=== PATIENT | female | born 1965 | race Caucasian/White ===

== ENCOUNTER 2024-10-18 07:53 | Outpatient (AMB) | payer OTHER, SELFPAY ==
--- NOTE | 2024-10-18 08:05 | MHC.OFFVIS ---
Vital Signs 10/18/24 08:08 Height 5 ft 2 in Weight 155 lb BMI 28.3 Intake Visit Reasons: Left shoulder pain and weakness Intake Note: Marley is a 59 year old right hand dominant female who presents with complaints of progressively worsening left shoulder pain and weakness. The patient describes her pain as sharp in nature. The patient states that she injured her left shoulder approximately 6 months ago when she fell while walking her dog. She states that her dog chased after another dog and she fell onto her left shoulder. She has been doing physical therapy with a personal lines account manager which has aggravated her pain. She has failed the last 6 weeks of conservative treatment which has included physical therapy, Tylenol, anti-inflammatory medicines and topical creams. The patient reports difficulty when lifting her left hand above shoulder height. She denies any other injuries. 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 Physical Exam Vital Signs: BMI result Body Mass Index 28.3 Const Other: Well-nourished well-developed very friendly female awake alert and oriented x3 in no acute distress Extrem Other: Bilateral upper extremity examination shows good capillary refill, no skin lesions noted, normal sensation light touch Left shoulder examination shows decreased range of motion when compared to her right shoulder, 4+ out of 5 strength with supraspinatus testing, positive impingement signs, no instability Results Reviewed Results Reviewed: X-rays of the patient's left shoulder taken today show severe acromioclavicular joint narrowing, a type 2 acromion, no acute bony abnormalities Assessment & Plan Assessment & Plan (1) Rotator cuff insufficiency of left shoulder: Code(s): M25.312 - Other instability, left shoulder Category: Medical Plan Ms. Delong presents with progressively worsening left shoulder pain and weakness possibly due to a full-thickness rotator cuff tear. Thus, I will send the patient for an MRI of her left shoulder for further evaluation. I will see her back once the MRI is completed to discuss the findings and treatment options. She will continue with her activity modifications in the meantime. Feel free to call me at any time should questions regarding her orthopedic management arise. Thank you very much for asking me to see this very friendly patient. I spent 22 minutes in reviewing the patient's records and imaging studies, seeing the patient and documenting in the medical record. Orders: Orders MR shoulder LT wo con Today M25.312 - Other instability, left shoulder Coding Level of Care Code New Pt Level 3 (05709) Complex EM visit Add On G2211 Diagnoses Rotator cuff insufficiency of left shoulder M25.312
[2024-10-18 08:08] VITALS: BMI 28.3
== END 2024-10-18 08:21 | disposition home or self-care (01) ==
PROVIDERS: Visit Provider Orthopaedic Surgery
DX: M25.312 Other instability, left shoulder (principal)
CPT/HCPCS: 99203

== ENCOUNTER 2024-10-18 09:35 | Outpatient (REF) | payer OTHER, SELFPAY ==
--- NOTE | ~2024-10-18 | XR_ITS ---
EXAMINATION: XR SHOULDER, LEFT CLINICAL INFORMATION: M25.511 - Pain in left shoulder COMPARISON: None available. TECHNIQUE: Two views of the left shoulder. FINDINGS: No acute cortical disruption or malalignment. No lytic or blastic lesions. XR/XR shoulder LT min 2V IMPRESSION: No acute fracture or dislocation. Electronically signed by: John Silver MD 10/20/2024 01:01 PM EST
== END 2024-10-18 09:36 | disposition home or self-care (01) ==
LOC: HO.HOSX 09:35
PROVIDERS: Visit Provider Orthopaedic Surgery
DX: M25.312 Other instability, left shoulder (principal)
CPT/HCPCS: 73030

== ENCOUNTER 2024-10-23 08:35 | Outpatient (REF) | payer OTHER, SELFPAY ==
--- NOTE | ~2024-10-23 | MR_ITS ---
EXAMINATION: MRI LEFT SHOULDER WITHOUT CONTRAST HISTORY: M25.312 - Other instability, left shoulder COMPARISON: Correlation is made with plain films of the left knee dated 10/18/2024. TECHNIQUE: Coronal T1, T2, and fat suppressed T2, axial fat suppressed proton density, and sagittal T2 weighted MR images of the left shoulder were obtained. FINDINGS: There are cystic changes in the humeral head. Bone marrow signal intensity is otherwise normal. The glenohumeral and acromioclavicular joints are maintained. There is no glenohumeral joint effusion. There is a tiny focus of fluid signal intensity at the anterior aspect of the distal supraspinatus tendon at its insertion on the greater tuberosity. This likely represents a tiny full-thickness tear. There is fluid in the subdeltoid/subacromial bursa. There is no tendon retraction or muscle atrophy. The infraspinatus, subscapularis, and teres minor tendons are intact. The biceps tendon is normally located. The glenoid labrum is grossly unremarkable in appearance, although evaluation is limited by lack of a joint effusion. MR/MR shoulder LT wo con IMPRESSION: Probable tiny full-thickness tear of the anterior fibers of the distal supraspinatus tendon at its insertion on the greater tuberosity of the humerus. Electronically signed by: Jean-Pierre Hicks MD 10/26/2024 08:57 AM [facility] [place]
== END 2024-10-23 08:36 | disposition home or self-care (01) ==
LOC: HO.MRI 08:35
PROVIDERS: Visit Provider Orthopaedic Surgery
DX: M25.312 Other instability, left shoulder (principal)
CPT/HCPCS: 73221

== ENCOUNTER → 2024-10-23 08:45 | Outpatient (BNV) | payer OTHER, SELFPAY | PROVIDERS: Visit Provider Radiology Diagnostic Radiology | DX: M25.312 Other instability, left shoulder (principal) | CPT/HCPCS: 73221 ==

== ENCOUNTER 2024-11-17 07:38 | Outpatient (AMB) | payer OTHER, SELFPAY ==
--- NOTE | 2024-11-17 07:43 | A.OFFVIS_ITS ---
Vital Signs 11/17/24 07:47 Height 5 ft 2 in Weight 155 lb BMI 28.3 Intake Visit Reasons: OV LT shoulder MRI review Intake Note: Mraley is a 59 year old female who presents today for a left shoulder MRI review. 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 She states that her shoulder gets aggravated when she does exercises overhead. She also experiences discomfort when she is putting on her jacket. She denies any weakness. 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 Physical Exam Vital Signs: BMI result Body Mass Index 28.3 Const Other: Well-nourished well-developed very friendly female awake alert and oriented x3 in no acute distress Extrem Other: Bilateral upper extremity examination shows good capillary refill, no skin lesions noted, normal sensation light touch Left shoulder examination shows full range of motion when compared to her right shoulder, 5/5 strength with supraspinatus testing, positive impingement signs, no instability Results Reviewed Results Reviewed: MRI of the patient's left shoulder shows moderate acromioclavicular joint narrowing, a type 2 acromion, a small cyst within the humeral head, signal change within the supraspinatus tendon most likely due to rotator cuff tendinosis versus partial-thickness tearing, no full-thickness tear noted Assessment & Plan Assessment & Plan (1) Impingement syndrome of left shoulder: Code(s): M75.42 - Impingement syndrome of left shoulder Category: Medical Plan Ms. Delong presents with intermittent left shoulder discomfort due to impingement syndrome. I had a lengthy discussion with the patient regarding the treatment options. She will continue with her activity modifications. The do's and don'ts of lifting were discussed at length with the patient. We will hold off on a cortisone injection for now. She will follow up with me on an as-needed basis should her symptoms worsen in any way. I spent 20 minutes in reviewing the patient's records and imaging studies, seeing the patient and documenting in the medical record. Coding Level of Care Code Est Pt Level 3 (79538) Complex EM visit Add On G2211 Diagnoses Impingement syndrome of left shoulder M75.42
[2024-11-17 07:47] VITALS: BMI 28.3
== END 2024-11-17 08:10 | disposition home or self-care (01) ==
PROVIDERS: Visit Provider Orthopaedic Surgery
DX: M75.42 Impingement syndrome of left shoulder (principal)
CPT/HCPCS: 99213

== ENCOUNTER → 2024-11-17 07:38 | Outpatient (BNVA) | payer OTHER, SELFPAY | PROVIDERS: Visit Provider Orthopaedic Surgery ==